=== PATIENT | male | born 1955 | race American Indian/Alaskan Native ===

== ENCOUNTER 2019-08-29 11:54 | Day surgery (SDC) | payer OTHER ==
[2019-08-29] MEDS ORDERED: SODIUM CHLORIDE 0.9% 1000 ML 1,000 ML ONE (12:15)
[2019-08-29] MEDS ORDERED: LIDOCAINE MPF (2%) 20 MG/1 ML VIAL 5 ML ONE (12:15)
[2019-08-29] MEDS ORDERED: SODIUM CHLORIDE 0.9% 1000 ML 1,000 ML IV SCH (12:15)
--- NOTE | 2019-08-29 12:39 | Anesthesia Consultation ---
Anesthesia Consult and Med Hx Date of service: 08/29/19 - Airway Anesthetic Teeth Evaluation: Good ROM Head & Neck: Adequate Mental/Hyoid Distance: Adequate Mallampati Class: Class II Intubation Access Assessment: Probably Good - Pre-Operative Health Status ASA Pre-Surgery Classification: ASA3 Proposed Anesthetic Plan: MAC - Pulmonary Hx Smoking: Yes (1/2 Pack) Hx Asthma: No Hx Respiratory Symptoms: No SOB: No COPD: No Home Oxygen Therapy: No Hx Pneumonia: No Hx Sleep Apnea: No - Cardiovascular System Hx Hypertension: Yes Hx Coronary Artery Disease: No Hx Heart Attack/AMI: No Hx Angina: No Hx Percutaneous Transluminal Coronary Angioplasty (PTCA): No Hx Cardia Arrhythmia: No Hx Pacemaker: No Hx Internal Defibrillator: No Hx Valvular Heart Disease: No Hx Heart Murmur: No Hx Peripheral Vascular Disease: No - Central Nervous System Hx Neuromuscular Disorder: No Hx Seizures: No CVA: No Hx Back Pain: No Hx Psychiatric Problems: No - Gastrointestinal Hx Ulcer: No Hx Gastroesophageal Reflux Disease: Yes - Endocrine Hx Renal Disease: Yes (Hemodialysis last 08/27/19) Hx End Stage Renal Disease: Yes Hx Cirrhosis: No Hx Liver Disease: No Hx Insulin Dependent Diabetes: No Hx Non-Insulin Dependent Diabetes: No Hx Thyroid Disease: No Hx Hypothyroidism: No Hx Hyperthyroidism: No - Hematic Hx Anemia: No Hx Sickle Cell Disease: No - Other Systems Hx Alcohol Use: No Hx Substance Use: No Hx Cancer: No Hx Obesity: No
--- NOTE | 2019-08-29 12:40 | Anesthesia Day of Surgery ---
Anesthesia Day of Surgery - Day of Surgery Patient Examined: Yes Patient H&P Reviewed: Yes Patient is NPO: Yes
[2019-08-29] MEDS ORDERED: PROPOFOL 200 MG/20 ML VIAL IV ONE ×2 (13:46)
--- NOTE | 2019-08-29 14:34 | Procedure Note ---
Date of procedure: 08/29/19 Pre-op diagnosis: Colon Polyp Screening Post-op diagnosis: other (Multiple,Colon Polyps/Mild to Moderate Left Colon Diverticular Disease/Mild,Ischemic Colitis (Recto-Sigmoid Colon)/Mild to Moderate Internal Hemorrhoids) Procedure: Colonoscoy with Cold Snare Polypectomy and Cold Biopsy Anesthesia: [facility] [place] Surgeon: ANUP AHN Estimated blood loss: minimal Pathology: list Specimen disposition: to lab Condition: stable Disposition: same day (Avoid aspirin and NSAID for 4 days; otherwise resume home medication. Encourage fiber intake and follow up in 1 to 2 weeks ([phone]).)
[2019-08-29 14:58] VITALS: BP 128/59
--- NOTE | 2019-08-29 16:51 | Operative Report ---
PROCEDURE: Colonoscopy with cold snare polypectomy and cold biopsy. INDICATIONS: A 64-year-old -[place] gentleman with an underlying history of hypertension, arthritis, and end-stage renal disease. Last colonoscopy was 11 years ago and a colonoscopy was done as part of colon polyp screening. DESCRIPTION OF PROCEDURE: Procedure was done after getting the informed consent with MAC anesthesia. The initial rectal exam was unremarkable. Instrument was passed through the rectum onto the cecum, which was identified with ileocecal valve and the appendiceal orifice and the terminal ileum was briefly intubated and showed normal mucosa. There were two small polyps noted in the cecum that were removed by cold biopsy. The remaining part of the cecum and the ascending colon showed normal appearing mucosa. There were two small polyps, also about 7 mm in diameter in the proximal transverse colon. That were removed by cold biopsy and the remaining part of the transverse colon showed normal mucosa. There was some [id number] diverticular disease noted in the left colon. In the sigmoid, there was a 10 mm sessile polyp that was removed by cold snare polypectomy and retrieved and there was also some mild inflammation suggestive possibly of ischemic colitis. That was mild and involving the rectosigmoid area. Photodocumentation and biopsy were obtained and the rectum showed [id number] internal hemorrhoid on the retroverted view. There was minimal bleeding from the biopsy sites and no complications associated with the procedure. ASSESSMENT: Colon polyp screening, multiple small polyps noted in the proximal and the proximal transverse colon and sigmoid polyp, which was about 9-10 mm in diameter and removed by cold snare polypectomy and retrieved. There was [id number] diverticular disease involving the left colon and mild ischemic colitis involving the rectosigmoid area as well as [id number] internal hemorrhoids. There is minimal bleeding associated with the procedure. No complications associated with the procedure. The patient will be asked to avoid aspirin and aspirin-related products for the next 4 days. Otherwise, resume home medication. Encouraged the patient to take fiber supplements and if the patient's biopsy results come back as being ischemic colitis, the patient may need a cardiac evaluation and specifically an echocardiogram to be done to assess for cardiac function. The procedure was done in the GI lab with the assistance of the GI lab team, which included LEANNA Tobar, destiney Lei and Kelly and with assistance of anesthesia. The patient will be asked to followup in the office in 1-2 weeks' time. ENRIQUE: 08/29/2019 14:29 JOB# [id number] SUSANA/SINDEY FERRER
--- NOTE | 2019-08-30 06:51 | Post Anesthesia Evaluation ---
- Post Anesthesia Evaluation Patient Participated: Yes Airway Patent: Yes Stable Respiratory Function: Yes Nausea/Vomiting: No Temp > 96.8F: Yes Pain Manageable: Yes Adequeate Hydration: Yes Anesthesia Complications: No Block Receding Appropriately: Not Applicable Patient on Ventilator: No
== END 2019-08-29 11:55 | disposition home or self-care (01) ==
LOC: GIO 11:54
DX: Z12.11 Encounter for screening for malignant neoplasm of colon (principal); D12.0 Benign neoplasm of cecum; K57.30 Diverticulosis of large intestine without perforation or abscess without bleeding; I12.0 Hypertensive chronic kidney disease with stage 5 chronic kidney disease or end stage renal disease; N18.6 End stage renal disease; K63.89 Other specified diseases of intestine; K62.1 Rectal polyp; K64.8 Other hemorrhoids; M19.90 Unspecified osteoarthritis, unspecified site; K21.9 Gastro-esophageal reflux disease without esophagitis; F17.210 Nicotine dependence, cigarettes, uncomplicated; Z88.6 Allergy status to analgesic agent; Z99.2 Dependence on renal dialysis; Z98.890 Other specified postprocedural states
CPT/HCPCS: 45380; 45385; 88305; J2704; J7030